=== PATIENT | female | born 1990 | race Caucasian/White ===

== ENCOUNTER 2018-06-16 08:22 | Day surgery (SDC) | payer OTHER ==
[2018-06-15 14:35] VITALS: BMI 27.4
[2018-06-16 10:24] VITALS: TEMP 98
[2018-06-16 10:51] VITALS: PULSE 60
[2018-06-16 11:30] VITALS: BP 113/71
--- NOTE | 2018-06-17 15:18 | PATH ---
Surgical Pathology Report Patient Name: ARIE INMAN [facility]. Rec. #: [id number] /Age/Gender: 1990 (Age: 27) / F Account: [id number] Location: [facility]-ENDOSCOPY Taken: 06/16/2018 Received: 06/16/2018 Reported: 06/17/2018 Physicians: Wesley Burgos D.O. Specimen(s) Received A: BX DUODENUM B: BX GASTRIC BODY AND ANGULARIS Clinical History Functional dyspepsia Postoperative diagnosis: Abdominal pain, functional dyspepsia Final Diagnosis A. DUODENUM, BIOPSY: DUODENUM MUCOSA WITH NO DIAGNOSTIC ABNORMALITIES. NO HISTOLOGIC EVIDENCE OF CELIAC DISEASE. B. GASTRIC BODY AND ANGULARIS, BIOPSY: GASTRIC MUCOSA WITH FOCAL MILD CHRONIC GASTRITIS. IMMUNOSTAIN FOR H. PYLORI IS NEGATIVE. NEGATIVE FOR INTESTINAL METAPLASIA. Electronically Signed Shonda Cool M.D. Gross Description A. Received in formalin, labeled "biopsy duodenum" are 2 grijalva, irregular portions of soft tissue averaging 0.3 cm. in greatest dimension. The specimens are submitted in toto in one cassette. B. Received in formalin, labeled "biopsy gastric angularis and body" are 3 grijalva, irregular portions of soft tissue ranging from 0.2-0.7 cm. in greatest dimension. The specimens are submitted in toto in one cassette. 06/16/201806/16/2018
== END 2018-06-16 11:30 | disposition home or self-care (01) ==
LOC: JASU-ENDO 08:22
PROVIDERS: ATTEND Internal Medicine Gastroenterology
PROC: 0DB68ZX Excision of Stomach, Via Natural or Artificial Opening Endoscopic, Diagnostic (ICD-10-PCS; 2018-06-16)
PROC: 0DB98ZX Excision of Duodenum, Via Natural or Artificial Opening Endoscopic, Diagnostic (ICD-10-PCS; principal; 2018-06-16 09:00)
DX: K44.9 Diaphragmatic hernia without obstruction or gangrene (principal); R10.13 Epigastric pain
CPT/HCPCS: 84703; 88305-TC; 88342-TC

== ENCOUNTER 2022-12-09 21:36 | Emergency (ER) | payer OTHER ==
[2022-12-09 21:50] VITALS: BP 121/77; PULSE 98; RESP 18; TEMP 97.9; BMI 31.7
[2022-12-09] MEDS ORDERED: SODIUM CHLORIDE 0.9% 500 ML INFUS.BAG IV ONE (22:37)
[2022-12-09] MEDS ORDERED: ACETAMINOPHEN 1000 MG/100 ML BAG IVPB ONE (22:37)
[2022-12-09] MEDS ORDERED: ONDANSETRON 4 MG/2 ML VIAL IVPUSH ONE (22:37)
[2022-12-09 22:50] LABS: EPI CELLS 19 /uL (0-25.1); HYALINE CASTS 0 /uL (0-3.1); URINE APPEARANCE CLEAR; URINE BACTERIA 263 /uL (0-1359); URINE BILIRUBIN NEGATIVE (NEGATIVE); URINE COLOR YELLOW; URINE GLUCOSE (UA) NEGATIVE (NEGATIVE); URINE KETONE NEGATIVE (NEGATIVE); URINE LEUK ESTERASE NEGATIVE (NEGATIVE); URINE NITRITE NEGATIVE (NEGATIVE); URINE PROTEIN 1+ (NEGATIVE); URINE RBC 581 /uL (0-23.9); URINE UROBILINOGEN 0.2 mg/dL (0.2-1.0); URINE WBC 21 /uL (0-25.8)
[2022-12-09] MEDS ORDERED: ACETAMINOPHEN INJECTION 100 ML IVPB ONE (22:50)
[2022-12-09 22:55] LABS: BASO % 0.6 % (0-2.0); EOS % 2.5 % (0-4.5); HEMATOCRIT 37.2 % (32.4-45.2); HEMOGLOBIN 12.3 GM/dL (10.7-15.3); LYMPH % 13.6 % (8-40); MCH 28.2 pg (25.7-33.7); MCHC 33.1 g/dl (32.0-36.0); MEAN CELL VOLUME 85.1 fl (80-96); MEAN PLT VOLUME 6.5 fl (7.5-11.1); MONO % 6.7 % (3.8-10.2); NEUT % 76.6 % (42.8-82.8); PLATELET COUNT 375 10^3/uL (134-434); RBC 4.38 M/mm3 (3.60-5.2); RDW 13.6 % (11.6-15.6); WHITE BLOOD COUNT 13.6 K/mm3 (4.0-10.0)
[2022-12-09 23:19] LABS: CALCIUM 8.9 mg/dL (8.5-10.1)
[2022-12-09 23:20] LABS: ALBUMIN 3.2 g/dl (3.4-5.0); BLOOD UREA NITROGEN 11.6 mg/dL (7-18)
[2022-12-09 23:23] LABS: CREATININE 0.6 mg/dL (0.55-1.3)
[2022-12-09 23:24] LABS: BILIRUBIN,TOTAL 0.2 mg/dL (0.2-1); TOT PROT 6.5 g/dl (6.4-8.2)
[2022-12-09 23:25] LABS: INR 1.12 (0.83-1.09)
== END 2022-12-10 01:38 | disposition home or self-care (01) ==
LOC: JER 21:36
PROC: 3E033NZ Introduction of Analgesics, Hypnotics, Sedatives into Peripheral Vein, Percutaneous Approach (ICD-10-PCS; principal; 2022-12-09)
DX: O20.0 Threatened abortion (principal); O26.891 Other specified pregnancy related conditions, first trimester; R10.30 Lower abdominal pain, unspecified; Z3A.13 13 weeks gestation of pregnancy
CPT/HCPCS: 36415; 76801-TC; 80053; 81003; 84702; 85025; 85610; 86850; 86900; 86901; 87086; 99284-25